=== PATIENT | female | born 1995 | race Asian ===

== ENCOUNTER 2022-02-21 04:23 | Day surgery (SDC) | payer BC ==
[2022-02-19 11:29] VITALS: BMI 25.0
[2022-02-21] MEDS ORDERED: DEXAMETHASONE SOD PHOSPHATE 4 MG/1 ML VIAL ONE (10:11)
[2022-02-21] MEDS ORDERED: MIDAZOLAM HCL 2 MG/2 ML SINGLE DOSE VIAL ONE (10:11)
[2022-02-21] MEDS ORDERED: PROPOFOL 20 ML ONE (10:23)
[2022-02-21] MEDS ORDERED: LIDOCAINE HCL 1%, 10 MG/ML (20ML VIAL) ONE (10:26)
[2022-02-21] MEDS ORDERED: BUPIVACAINE HCL/PF 0.25% (2.5MG/ML) 10 ML VIAL ONE (10:26)
[2022-02-21] MEDS ORDERED: BUPIVACAINE HCL/PF 0.25% (2.5MG/ML) 10 ML VIAL IJ ONE (10:32)
[2022-02-21] MEDS ORDERED: LIDOCAINE HCL 1%, 10 MG/ML (20ML VIAL) INF ONE (10:32)
[2022-02-21] MEDS ORDERED: ceFAZolin SODIUM 1 GM VIAL IVPB ONE (10:43)
[2022-02-21] MEDS ORDERED: KETOROLAC TROMETHAMINE 30 MG/1 ML VIAL ONE (11:24)
[2022-02-21] MEDS ORDERED: ACETAMINOPHEN 1000 MG/100 ML BAG IVPB ONE (11:36)
[2022-02-21] MEDS ORDERED: ONDANSETRON *ODT* 4 MG TABLET SL PRN (11:37)
[2022-02-21] MEDS ORDERED: oxyCODONE HCL 5 MG TABLET PO PRN (11:37)
[2022-02-21] MEDS ORDERED: ACETAMINOPHEN 500 MG TABLET (FP) PO PRN (12:14)
[2022-02-21 13:32] VITALS: TEMP 97.8
[2022-02-21 13:37] VITALS: BP 112/62; PULSE 80
== END 2022-02-21 12:40 | disposition home or self-care (01) ==
LOC: JASU-SURG 04:23
PROVIDERS: ATTEND Podiatrist Foot & Ankle Surgery
PROC: 0QBR0ZZ Excision of Left Toe Phalanx, Open Approach (ICD-10-PCS; 2022-02-21)
PROC: 0QBP0ZZ Excision of Left Metatarsal, Open Approach (ICD-10-PCS; principal; 2022-02-21 09:30)
DX: M20.5X2 Other deformities of toe(s) (acquired), left foot (principal); L84 Corns and callosities; L97.519 Non-pressure chronic ulcer of other part of right foot with unspecified severity; G70.9 Myoneural disorder, unspecified; R26.81 Unsteadiness on feet
CPT/HCPCS: 36415; 73630-TC-LT; 76000-TC-FY; 82962; 84703; 88304-TC; 88311-TC

== ENCOUNTER 2023-06-15 20:24 | Emergency (ER) | payer BC, OTHER ==
[2023-06-15 20:37] VITALS: BP 115/82; PULSE 84; RESP 16; TEMP 98.8; BMI 20.2
[2023-06-15] MEDS ORDERED: DIPHTH,PERTUSS(ACELL),TET 0.5 ML DISP.SYRIN IM ONE ×2 (21:20→21:24)
[2023-06-15] MEDS ORDERED: ACETAMINOPHEN 500 MG TABLET (FP) PO ONE (21:20)
[2023-06-15] MEDS ORDERED: ACETAMINOPHEN 500 MG TABLET (FP) ONE (21:24)
== END 2023-06-15 23:05 | disposition home or self-care (01) ==
LOC: JER 20:24 → JERFT 20:24
PROC: 3E0234Z Introduction of Serum, Toxoid and Vaccine into Muscle, Percutaneous Approach (ICD-10-PCS; principal; 2023-06-15)
DX: S01.81XA Laceration without foreign body of other part of head, initial encounter (principal); R42 Dizziness and giddiness; R51.9 Headache, unspecified; S00.512A Abrasion of oral cavity, initial encounter; S00.31XA Abrasion of nose, initial encounter; W01.198A Fall on same level from slipping, tripping and stumbling with subsequent striking against other object, initial encounter
CPT/HCPCS: 70450-TC; 90715; 99284-25